=== PATIENT | male | born 1975 | race Caucasian/White ===

== ENCOUNTER 2017-10-04 16:28 | Observation (INO) ==
[2017-10-04 17:08] LABS: Clarity,Urine Clear (Clear); Color,Urine Orange (Yellow)
[2017-10-04 17:44] LABS: Calcium Oxalate Crystals,Urine Present
[2017-10-04 17:45] LABS: Basophils # 0.1 K/mcL (0.0-0.2); Basophils % 1.3 %; Eosinophils # 0.3 K/mcL (0.0-0.6); Hematocrit 38.4 % (37.5-50.1); Hemoglobin 13.1 g/dL (12.9-16.9); Immature Granulocytes % 1.1 % (0-4); Lymphocytes # 1.5 K/mcL (0.6-4.6); Lymphocytes % 20.4 %; Mean Corpuscular HGB Conc 34.1 g/dL (31.6-35.5); Mean Corpuscular Hemoglobin 36.1 pg (28.0-33.3); Mean Corpuscular Volume 105.8 fL (83.0-100.0); Mean Platelet Volume 9.8 fL (9.4-12.4); Monocytes # 0.7 K/mcL (0.0-1.3); Monocytes % 9.7 %; Neutrophils # 4.6 K/mcL (1.6-8.9); Platelet Count 63 K/mcL (140-400); Red Blood Count 3.63 M/mcL (4.19-5.50); Red Cell Distribution Width 16.9 % (11.5-14.5); Segmented Neutrophils % 63.5 %
[2017-10-04 17:45] LABS: Hyaline Casts,Urine Few per lpf (None-Few); RBC,Urine 0-3 per hpf (0-3); WBC,Urine 0-3 per hpf (0-3)
[2017-10-04 17:46] LABS: Bacteria,Urine Moderate per hpf (None-Few)
[2017-10-04 18:06] LABS: Alanine Aminotransferase 27 Units/L (7-52); Albumin 2.8 g/dL (3.5-5.7); Albumin/Globulin Ratio 0.8 (1.1-2.2); Alkaline Phosphatase 223 Units/L (34-104); Amylase 47 Units/L (29-103); Aspartate Amino Transferase 55 Units/L (13-39); BUN/Creatinine Ratio 8 (6-26); Bilirubin,Total 5.5 mg/dL (0.3-1.0); Blood Urea Nitrogen 7 mg/dL (6-20); Calcium 8.9 mg/dL (8.6-10.3); Carbon Dioxide 24 mEq/L (23-29); Chloride 109 mEq/L (98-107); Globulin 3.3 g/dL (2.4-3.5); Glucose 101 mg/dL (70-105); Lipase 50 Units/L (11-82); Osmolality,Calculated 286 (280-300); Potassium 3.9 mEq/L (3.5-5.1); Sodium 139 mEq/L (136-145); Total Protein 6.1 g/dL (6.4-8.9); eGFR For African Americans > 60 (> 60); eGFR For Non-African Americans > 60 (> 60)
--- NOTE | 2017-10-04 18:26 | Emergency Department Note ---
Disposition Clinical Impression: Hyperbilirubinemia Cirrhosis Qualifiers: Hepatic cirrhosis type: unspecified hepatic cirrhosis Ascites presence: with ascites Qualified Code(s): K74.60 - Unspecified cirrhosis of liver Disposition: Admitted As Inpatient Referrals: Taylor Sanchez CNP [Primary Care Provider] - Forms: ED Satisfaction Letter, Work/School Release Abdominal Pain HPI - General Chief Complaint: ED Abdominal Pain Stated Complaint: R flank pain Time Seen by Provider: 10/04/17 17:52 Source: patient Mode of arrival: ambulatory Limitations: no limitations Nursing Notes Reviewed: Yes Vital Signs Reviewed: Yes - History of Present Illness HPI Narrative: 42-year-old male with past medical history of cirrhosis, renal stones, and seizures, presents the emergency department with 4 day history of right side pain. He points to the pain is in the midaxillary line just inferior to the rib cage. He states that the pain is constant and all with intermittent times of sharp pain. He denies that the pain is radiating anywhere. Does not seem to get worse with food, but will be worse with movement at times. Associated symptoms include bloating, abdominal distention, and bilateral lower extremity edema. He is also reporting that his urine looks red/orange. He states that he follows with Dr. Cosme, and just had some labs drawn and they were told that his blood is thin. Dr. Cosme was planning on ordering a MRCP. He denies fevers, chills, syncope, chest pain, dyspnea, constipation, diarrhea, hematochezia, melena, dysuria, or leg pain. Pain Scale: 6 - Related Data Home Medications Medication Instructions Recorded Confirmed Omeprazole Magnesium [Prilosec Otc] 20 mg PO BID 10/04/17 10/04/17 Ursodiol [Richard Forte] 500 mg PO BID 10/04/17 10/04/17 Allergies Allergy/AdvReac Type Severity Reaction Status Date / Time phenobarbital Allergy Rash Verified 10/04/17 16:34 Cyclobenzaprine AdvReac Agitated Verified 10/04/17 16:34 [From Flexeril] All systems ED: reviewed and negative except as stated. Review of Systems: As Per HPI Abdominal Pain PMH - Past Medical History Medical history: Reports: cirrhosis, kidney stones, seizures Male Surgical History: Reports: other Psychiatric history: Reports: anxiety, depression - Social History Smoking status: Current every day smoker Alcohol use: Reports: none Drug use: Reports: marijuana Physical Exam - General Limitations: no limitations General appearance: alert, in no apparent distress - Head Head exam: atraumatic, normocephalic, normal inspection - Eye Eye exam: Present: normal appearance, EOMI, scleral icterus. Absent: conjunctival injection - ENT ENT exam: mucous membranes moist - Chest Chest inspection: Present: symmetric chest wall rise - Respiratory Respiratory exam: Present: normal lung sounds bilaterally - Cardiovascular Cardiovascular exam: Present: regular rate, normal rhythm, +S1, +S2 - Abdominal Exam Abdominal exam: Present: soft, tenderness, distention. Absent: guarding, rebound, rigidity, Jordan's sign, Rovsing's sign, tenderness at McBurney's Point Abdominal tenderness: Present: RUQ (And lateral in the midaxillary line just inferior to the rib cage.), moderate - Extremities Exam Extremities exam: Present: normal inspection, full ROM, normal capillary refill , pedal edema (+2 pitting edema bilaterally). Absent: tenderness - Back Exam Back exam: Present: CVA tenderness (R) (Mild). Absent: CVA tenderness (L), paraspinal tenderness, vertebral tenderness - Neurological Exam Neurological exam: Present: alert, oriented X3 - Skin Skin exam: Present: warm, dry, intact, normal color Course Vital Signs Temperature 98.2 F 10/04/17 16:35 Pulse Rate 92 10/04/17 16:35 Respiratory Rate 20 10/04/17 16:35 Blood Pressure 137/81 10/04/17 16:35 O2 Sat by Pulse Oximetry 97 10/04/17 16:35 Temperature 98.2 F 10/04/17 16:35 Pulse Rate 85 10/04/17 19:27 Respiratory Rate 16 10/04/17 19:27 Blood Pressure 118/68 10/04/17 19:27 O2 Sat by Pulse Oximetry 98 10/04/17 19:27 Oxygen Delivery Oxygen Delivery Room Air Abdominal Pain - MDM Narrative Medical decision making narrative: CT shows no acute findings in the abdomen or pelvis. Cirrhotic liver with no obvious focal lesion. Sequelae of portal hypertension, including dilation of the main portal vein, extensive venous collaterals, moderate ascites, and moderate splenomegaly. Initially, there is likely portal enteropathy and colopathy. Mild anasarca. CBC unremarkable. INR 1.4. Chemistry panel shows total bilirubin of 5.5, this is higher than it has been in the past for him. UA unable to be evaluated due to high bilirubin. Hepatic enzymes are consistent with previous evaluations. Discussed the case with Gastroenterology and they recommend overnight observation and to plan for MRCP in the morning for further evaluation of his hyperbilirubinemia. They have concern for primary sclerosing cholangitis. The patient is in agreement with this plan. Discussed the case with Dr. Camargo who accepts the patient for admission. - Lab Data Lab results reviewed: Yes I reviewed the patient's lab results. Result diagrams: 10/04/17 17:05 10/04/17 17:05 Lab Results 10/04/17 10/04/17 10/04/17 Range/Units 16:31 17:05 17:05 WBC 7.2 (4.3-11.1) K/mcL RBC 3.63 L (4.19-5.50) M/mcL Hgb 13.1 (12.9-16.9) g/dL Hct 38.4 (37.5-50.1) % MCV 105.8 H (83.0-100.0) fL MCH 36.1 H (28.0-33.3) pg MCHC 34.1 (31.6-35.5) g/dL RDW 16.9 H (11.5-14.5) % Plt Count 63 L (140-400) K/mcL MPV 9.8 (9.4-12.4) fL Immature Gran % 1.1 (0-4) % Seg Neutrophils % 63.5 % Lymphocytes % 20.4 % Monocytes % 9.7 % Eosinophils % 4.0 % Basophils % 1.3 % Neutrophils # 4.6 (1.6-8.9) K/mcL Lymphocytes # 1.5 (0.6-4.6) K/mcL Monocytes # 0.7 (0.0-1.3) K/mcL Eosinophils # 0.3 (0.0-0.6) K/mcL Basophils # 0.1 (0.0-0.2) K/mcL PT (9.4-12.1) Seconds INR APTT (26.0-36.0) Seconds Sodium 139 (136-145) mEq/L Potassium 3.9 (3.5-5.1) mEq/L Chloride 109 H (98-107) mEq/L Carbon Dioxide 24 (23-29) mEq/L BUN 7 (6-20) mg/dL Creatinine 0.86 (0.70-1.30) mg/dL Est GFR ( Amer) > 60 (> 60) Est GFR (Non-Af Amer) > 60 (> 60) BUN/Creatinine Ratio 8 (6-26) Glucose 101 (70-105) mg/dL Calculated Osmolality 286 (280-300) Calcium 8.9 (8.6-10.3) mg/dL Total Bilirubin 5.5 H (0.3-1.0) mg/dL AST 55 H (13-39) Units/L ALT 27 (7-52) Units/L Alkaline Phosphatase 223 H (34-104) Units/L Serum Total Protein 6.1 L (6.4-8.9) g/dL Albumin 2.8 L (3.5-5.7) g/dL Globulin 3.3 (2.4-3.5) g/dL Albumin/Globulin Ratio 0.8 L (1.1-2.2) Amylase 47 (29-103) Units/L Lipase 50 (11-82) Units/L Ur Specimen Adequacy See below A Urine Color [place] A (Yellow) Urine Clarity Clear (Clear) Urine pH TNP Ur Specific [place] TNP Urine Protein TNP Urine Glucose (UA) TNP Urine Ketones TNP Urine Blood TNP Urine Nitrite TNP Urine Bilirubin TNP Urine Urobilinogen TNP Ur Leukocyte Esterase TNP Urine Microscopic RBC 0-3 (0-3) per hpf Urine Microscopic WBC 0-3 (0-3) per hpf Calcium Oxalate Crystal Present Urine Bacteria Moderate H (None-Few) per hpf Hyaline Casts Few (None-Few) per lpf Ur Culture Indicated? NO (NO) 10/04/17 Range/Units 17:05 WBC (4.3-11.1) K/mcL RBC (4.19-5.50) M/mcL Hgb (12.9-16.9) g/dL Hct (37.5-50.1) % MCV (83.0-100.0) fL MCH (28.0-33.3) pg MCHC (31.6-35.5) g/dL RDW (11.5-14.5) % Plt Count (140-400) K/mcL MPV (9.4-12.4) fL Immature Gran % (0-4) % Seg Neutrophils % % Lymphocytes % % Monocytes % % Eosinophils % % Basophils % % Neutrophils # (1.6-8.9) K/mcL Lymphocytes # (0.6-4.6) K/mcL Monocytes # (0.0-1.3) K/mcL Eosinophils # (0.0-0.6) K/mcL Basophils # (0.0-0.2) K/mcL PT 15.3 H (9.4-12.1) Seconds INR 1.4 APTT 36.2 H (26.0-36.0) Seconds Sodium (136-145) mEq/L Potassium (3.5-5.1) mEq/L Chloride (98-107) mEq/L Carbon Dioxide (23-29) mEq/L BUN (6-20) mg/dL Creatinine (0.70-1.30) mg/dL Est GFR ( Amer) (> 60) Est GFR (Non-Af Amer) (> 60) BUN/Creatinine Ratio (6-26) Glucose (70-105) mg/dL Calculated Osmolality (280-300) Calcium (8.6-10.3) mg/dL Total Bilirubin (0.3-1.0) mg/dL AST (13-39) Units/L ALT (7-52) Units/L Alkaline Phosphatase (34-104) Units/L Serum Total Protein (6.4-8.9) g/dL Albumin (3.5-5.7) g/dL Globulin (2.4-3.5) g/dL Albumin/Globulin Ratio (1.1-2.2) Amylase (29-103) Units/L Lipase (11-82) Units/L Ur Specimen Adequacy Urine Color (Yellow) Urine Clarity (Clear) Urine pH Ur Specific [place] Urine Protein Urine Glucose (UA) Urine Ketones Urine Blood Urine Nitrite Urine Bilirubin Urine Urobilinogen Ur Leukocyte Esterase Urine Microscopic RBC (0-3) per hpf Urine Microscopic WBC (0-3) per hpf Calcium Oxalate Crystal Urine Bacteria (None-Few) per hpf Hyaline Casts (None-Few) per lpf Ur Culture Indicated? (NO) - Radiology Data Radiology results reviewed: Yes I reviewed the patient's radiology results. No acute findings in the abdomen or pelvis. Cirrhotic liver with no obvious focal lesion. Sequelae of portal hypertension, including dilation of the main portal vein, extensive venous collaterals, moderate ascites, and moderate splenomegaly. Initially, there is likely portal enteropathy and colopathy. Mild anasarca.
[2017-10-04 18:47] LABS: INR 1.4; Prothrombin Time 15.3 Seconds (9.4-12.1)
[2017-10-04 18:50] LABS: Activated Partial Thrombo Time 36.2 Seconds (26.0-36.0)
[2017-10-04] MEDS ORDERED: *HR* Nalbuphine 20 MG/ML AMPUL IVP ONE (19:46)
--- NOTE | 2017-10-04 19:55 | Emergency Department Note ---
START Narrative - START START: I examined this patient and my medical decision-making was reviewed with the Resident Physician. I agree with the documented findings, disposition and treatment plan as described except to the extent set forth below. This was a 42-year-old male presented to the ER with jaundice a right upper quadrant and right flank pain. Most the pain seemed to be in the right upper quadrant. He does have history of cirrhosis. He has obvious ascites on exam as well as jaundice. CT shows extensive ascites of the abdomen. Spoke with GI who would like the patient admitted to be admitted for a MRCP tomorrow. They are uncertain if he has primary sclerosing cholangitis or some other disease process. His labs are stable other than his elevated bilirubin. This affected his urinalysis result.
[2017-10-04] MEDS ORDERED: Naloxone 0.4 MG/ML INJ IVP PRN (23:27)
[2017-10-04] MEDS ORDERED: 0.9 % Sodium Chloride 1,000 ML IVC SCH (23:30)
--- NOTE | 2017-10-04 23:50 | Internal Med History&Physical ---
Date of Encounter: 10/04/17 Time of Encounter: 23:00 Assessment and Plan (1) Cirrhosis Current visit: Yes Status: Acute Etiology is undetermined. Continue follow-up with GI as outpatient Qualifiers: Hepatic cirrhosis type: unspecified hepatic cirrhosis Ascites presence: with ascites Qualified Code(s): K74.60 - Unspecified cirrhosis of liver (2) Hyperbilirubinemia Current visit: Yes Status: Acute Patient has a chronic high bilirubin. Will consult GI. Plan for MRCP tomorrow. (3) Abdominal pain Current visit: Yes Status: Acute Patient has sharp pain on the specifics point on the abdominal chest wall. No fever. Very less likely SBP. CT abdominal unremarkable. Will give pain medication. Nothing by mouth at this point with IV fluid. GI consult in AM Qualifiers: Abdominal location: right upper quadrant Qualified Code(s): R10.11 - Right upper quadrant pain (4) DVT prophylaxis Current visit: Yes Status: Acute Patient is young and ambulating well. Low risk for DVT. No anticoagulation as pt also has thrombocytopenia Internal Medicine - H&P: HPI Chief complaint: Abd pain Admitted From: Home Plans for Post Hospital Care: Home History of present illness: Mr. Wu is a 42 year male with history of cirrhosis from unclear reason, chronic back pain, WPW syndrome S/P ablation, presented to ER for right-sided abdominal/chest pain since Wednesday. The pain is located on the right side border of chest and abdomen, with specific tender point. Sharp. Patient said it is intermittent and worsening on eating, coughing, and sneezing. Patient denies any injury. Patient has chronic jaundice, which seems increased today. Patient denies fever, nausea, vomiting, diarrhea. CT abdomen has been done, results are unremarkable. ER called GI consult Dr. Cosme. Patient was admitted for observation and plan for MRCP tomorrow. Past Med Surg Social Fam HX - Past Medical History Medical history: cirrhosis, kidney stones, seizures Psychiatric history: anxiety, depression - Past Surgical History Surgical History: other - Social History Smoking Status: Current every day smoker Packs per day: 0.56 Smokeless Tobacco Status: No Alcohol use: none Drug use: marijuana - Family History Mother Adopted: [place]: DESMOND Age: 68 Family Member Ethnicity: Non- Living Status: Still Living Hx Family Cardiac Disorders: No Hx Family Respiratory Disorders: Yes (COPD) Hx Family Cancer: No Hx Family GI Disorders: No Hx Family Genitourinary Disorders: No Hx Family Endocrine Disorder: No Hx Family Musculoskeletal Disorders: No Hx Family Neuromuscular Disorders: No Hx Family Neurologic Disorders: No Hx Family HEENT Disorders: No Hx Family Autoimmune Disorders: Yes (RA) Hx Family Reproductive Disorders: No Hx Family Psychosocial Disorders: No Hx Family Medical Disorders: No Internal Medicine - H&P: Meds Omeprazole Magnesium [Prilosec Otc] 20 mg PO BID 10/04/17 [History] Ursodiol [Richard Forte] 500 mg PO BID 10/04/17 [History] 3 Allergy/AdvReac Type Severity Reaction Status Date / Time phenobarbital Allergy Rash Verified 10/04/17 16:34 Cyclobenzaprine AdvReac Agitated Verified 10/04/17 16:34 [From Flexeril] All Systems PM: A 10-system review of systems was performed and is negative for pertinent findings except as documented above in the HPI. - Constitutional Vitals: Temp Pulse Resp BP Pulse Ox 97.8 F 77 16 142/71 96 10/04/17 21:30 10/04/17 21:30 10/04/17 21:30 10/04/17 21:30 10/04/17 21:30 General appearance: Present: A&O X 3, no acute distress, answers questions appropriately - Head Head exam: Present: atraumatic, normocephalic - Eye Eye exam: Present: PERRL, scleral icterus, conjuntiva pink, sclera anicteric Pupils: Present: PERRL - Neck Neck exam general surgery: Present: supple, trachea midline. Absent: lymphadenopathy - Respiratory Respiratory exam: Present: CTAB. Absent: accessory muscle use, rales, rhonchi, wheezes - Cardiovascular Cardiovascular exam: Present: RRR, +S1, +S2. Absent: diastolic murmur, gallop, rubs, systolic murmur - GI/Abdominal GI/Abdominal exam: Present: normal bowel sounds, soft, tenderness, no peritoneal signs. Absent: distended Additional comments: Tenderness on the midaxillary line cross costal margin. Morphy's sign negative - Extremities Exam Extremities exam: Present: warm, radial pulses palpable and symmetrical. Absent : calf tenderness, cyanotic, pedal edema - Neurological Exam Neurological exam: Present: CN II-XII intact, oriented X3, no focal deficits. Absent: pronater drift, facial droop, speech deficit - Skin Skin exam: Present: dry, intact Internal Med - H&P Results - Labs CBC & Chem 7: 10/04/17 17:05 10/04/17 17:05
[2017-10-04] MEDS: Ketorolac 30 MG/ML VIAL IVP PRN (23:57)
[2017-10-05 05:55] LABS: Basophils # 0.1 K/mcL (0.0-0.2); Basophils % 1.2 %; Eosinophils # 0.4 K/mcL (0.0-0.6); Eosinophils % 8.6 %; Hematocrit 30.1 % (37.5-50.1); Lymphocytes # 1.2 K/mcL (0.6-4.6); Lymphocytes % 29.6 %; Mean Corpuscular HGB Conc 34.2 g/dL (31.6-35.5); Mean Corpuscular Hemoglobin 35.8 pg (28.0-33.3); Mean Corpuscular Volume 104.5 fL (83.0-100.0); Monocytes # 0.5 K/mcL (0.0-1.3); Monocytes % 12.1 %; Red Blood Count 2.88 M/mcL (4.19-5.50); Red Cell Distribution Width 17.1 % (11.5-14.5); Segmented Neutrophils % 47.5 %
[2017-10-05 05:57] LABS: Hemoglobin 10.3 g/dL (12.9-16.9); Platelet Count 46 K/mcL (140-400)
[2017-10-05 06:20] LABS: Alanine Aminotransferase 19 Units/L (7-52); Albumin/Globulin Ratio 0.8 (1.1-2.2); Alkaline Phosphatase 158 Units/L (34-104); Aspartate Amino Transferase 39 Units/L (13-39); BUN/Creatinine Ratio 9 (6-26); Bilirubin,Indirect 1.7 mg/dL (0.0-1.2); Bilirubin,Total 3.7 mg/dL (0.3-1.0); Blood Urea Nitrogen 8 mg/dL (6-20); Calcium 7.8 mg/dL (8.6-10.3); Carbon Dioxide 23 mEq/L (23-29); Chloride 112 mEq/L (98-107); Globulin 2.5 g/dL (2.4-3.5); Glucose 69 mg/dL (70-105); Magnesium 1.6 mg/dL (1.6-2.6); Osmolality,Calculated 283 (280-300); Potassium 3.3 mEq/L (3.5-5.1); Sodium 138 mEq/L (136-145); Total Protein 4.5 g/dL (6.4-8.9); eGFR For African Americans > 60 (> 60); eGFR For Non-African Americans > 60 (> 60)
--- NOTE | 2017-10-05 07:54 | Internal Med Progress Note ---
Date of Encounter: 10/05/17 Time of Encounter: 07:52 - Assessment and plan (1) Abdominal pain Current Visit: Yes Status: Acute Assessment and plan: This is either intercostal strain, or a abdominal wall muscle sprain most likely. Does not appear to be GI related. Qualifiers: Abdominal location: right upper quadrant Qualified Code(s): R10.11 - Right upper quadrant pain (2) Protein calorie malnutrition Current Visit: Yes Status: Acute Assessment and plan: Due to liver disease, he would benefit from protein supplementation 2-3 times per day upon discharge. Qualifiers: Qualified Code(s): E43 - Unspecified severe protein-calorie malnutrition (3) Cirrhosis Current Visit: Yes Status: Chronic Assessment and plan: Bilirubin is coming down nicely since admission, there does not appear to be over advancement of his cirrhosis at this time, there is some mild ascites, there is no signs of bacterial peritonitis. With associated thrombocytopenia Qualifiers: Hepatic cirrhosis type: unspecified hepatic cirrhosis Ascites presence: with ascites Qualified Code(s): K74.60 - Unspecified cirrhosis of liver (4) Hyperbilirubinemia Current Visit: Yes Status: Chronic Assessment and plan: Improving. (5) Hypokalemia Current Visit: Yes Status: Acute Assessment and plan: We will supplement this upon discharge. - Time Spent With Patient 25 - 35 minutes - Subjective Interval history: He is still having some right upper quadrant discomfort, this sounds more structural than anything else. He is having no nausea no vomiting, his pain does not appear to be a meal associated, he currently is somewhat hungry. Currently nothing by mouth for MRCP later today. Still awaiting gastroenterology consultation. My hope is to discharge later today pending that result. - Constitutional Vitals: Temp Pulse Resp BP Pulse Ox 97.7 F 80 16 102/54 95 10/05/17 03:36 10/05/17 03:36 10/05/17 03:36 10/05/17 03:36 10/05/17 03:36 General appearance: Present: A&O X 3, no acute distress, answers questions appropriately - Eye Eye exam: Present: EOMI, scleral icterus - Neck Neck exam general surgery: Present: supple, trachea midline - Respiratory Additional comments: Decreased breath sounds in the right base compared to the left, mild decreased airflow in all mueller, no tachypnea. The ribs on the right side in the lower anterior area are not tender to palpation. - GI/Abdominal GI/Abdominal exam: Present: normal bowel sounds, soft, no peritoneal signs. Absent: rebound, rigid Additional comments: No fluid wave noted. - Extremities Exam Extremities exam: Present: warm. Absent: pedal edema Internal Medicine: Result - Labs CBC & Chem 7: 10/05/17 05:24 10/05/17 05:24 Labs: Short CBC 10/05/17 Range/Units 05:24 WBC 4.1 L (4.3-11.1) K/mcL Hgb 10.3 L D (12.9-16.9) g/dL Hct 30.1 L (37.5-50.1) % Plt Count 46 L (140-400) K/mcL Neutrophils # 2.0 (1.6-8.9) K/mcL BMP 10/05/17 05:24 Sodium 138 Potassium 3.3 L Chloride 112 H Carbon Dioxide 23 BUN 8 Creatinine 0.90 Glucose 69 L Calcium 7.8 L Liver Function 10/05/17 Range/Units 05:24 Total Bilirubin 3.7 H (0.3-1.0) mg/dL Direct Bilirubin 2.0 H (0.0-0.2) mg/dL AST 39 (13-39) Units/L ALT 19 (7-52) Units/L Alkaline Phosphatase 158 H (34-104) Units/L Albumin 2.0 L (3.5-5.7) g/dL - ABG Interpretation ABG results: PT/INR, D-dimer PT 15.3 Seconds (9.4-12.1) H 10/04/17 17:05 Consult Discharge Plan - Plan Referrals: Taylor Sanchez, FAMILY [employer] SPECIALIST [Primary Care Provider] -
[2017-10-05] MEDS: Ketorolac 30 MG/ML VIAL IVP PRN (09:26)
[2017-10-05 15:44] VITALS: BP 122/72
--- NOTE | 2017-10-05 15:57 | Gastroenterology Consult Note ---
<RiversJun herring Oren - Last Filed: 10/05/17 15:55> Date of Encounter: 10/05/17 Time of Encounter: 12:05 - Assessment and plan (1) Ascites Status: Acute Assessment and plan: Secondary to cirrhosis. Plan for paracentesis today. Send fluid for cell count, albumin, and total protein. Infuse Albumin 25%, 8 gm/L if greater than 5 liters removed. Start Cipro to cover SBP prophylactically. Qualifiers: Ascites type: other type Qualified Code(s): R18.8 - Other ascites (2) Primary biliary cholangitis Status: Acute Assessment and plan: AMA 26.9, alk phos 223 on admission and 158 today. Pt has been unable to afford Ursodiol. (3) Cirrhosis Status: Chronic Assessment and plan: MELD-Na 17, Child-Prieto class B, DF 27.6. Check AFP. RUQ US 09/29 no lesions noted. Qualifiers: Hepatic cirrhosis type: unspecified hepatic cirrhosis Ascites presence: with ascites Qualified Code(s): K74.60 - Unspecified cirrhosis of liver - Time Spent With Patient Total time spent is greater than 50% in coordination of care (as documented) at patient's floor/unit and/or counseling patient: GI History of Present Illness - Data of Consult Patient: known to practice within the last 3 years Consult date: 10/05/17 Requesting Physician: aRmona Casillas CNP - Consult Narrative Reason for consult: Ascites History of present illness: Mr. Wu is a 42 year old male with PMHx of cirrhosis, kidney stones, WPW syndrome s/p ablation who presented to the ED with right sided abdominal pain that started on Wednesday. The pain is located on the right side border of chest and abdomen, with specific tender point. Patient said it is intermittent and worsening on eating, coughing, and sneezing. He denies fever, chills, nausea, vomiting, diarrhea, constipation, melena, or hematochezia. Total bili 5.5 on admission and this AM TB 3.7. Procedures: Colonoscopy 01/21/2016 Dr. Cosme: Normal EGD 01/21/2016 Dr. Cosme: Portal hypertensive gastropathy. NSAIDs: None Anticoagulation: None Past Med Surg Social Fam HX - Past Medical History Medical history: cirrhosis, kidney stones, seizures Psychiatric history: anxiety, depression - Past Surgical History Surgical History: other - Social History Smoking Status: Current every day smoker Packs per day: 0.56 Smokeless Tobacco Status: No Alcohol use: none Drug use: marijuana - Family History Mother Adopted: Regan: DESMOND Age: 68 Family Member Ethnicity: Non- Living Status: Still Living Hx Family Cardiac Disorders: No Hx Family Respiratory Disorders: Yes (COPD) Hx Family Cancer: No Hx Family GI Disorders: No Hx Family Genitourinary Disorders: No Hx Family Endocrine Disorder: No Hx Family Musculoskeletal Disorders: No Hx Family Neuromuscular Disorders: No Hx Family Neurologic Disorders: No Hx Family HEENT Disorders: No Hx Family Autoimmune Disorders: Yes (RA) Hx Family Reproductive Disorders: No Hx Family Psychosocial Disorders: No Hx Family Medical Disorders: No - Gastrointestinal Gastrointestinal: Present: as per HPI - Constitutional Constitutional: as per HPI - EENT Eyes: as per HPI Ears: Present: as per HPI Nose, mouth and throat: Present: as per HPI - Cardiovascular Cardiovascular ROS: Present: as per HPI - Respiratory Respiratory IM: Present: as per HPI - Genitourinary Genitourinary: Absent: change in color, Urinary frequency - Neurological ROS Neurological GI: Present: as per HPI - Hematologic/Lymphatic Hematologic/Lymphatic pediatric: Present: as per HPI - Musculoskeletal Musculoskeletal ROS GI: Present: as per HPI - Integumentary Integumentary GI: Present: as per HPI - Psychiatric ROS Psychiatric GI: Present: as per HPI - Endocrine Endocrine IM: Present: as per HPI - Constitutional Vitals: Temp Pulse Resp BP Pulse Ox 97.9 F 79 16 122/72 96 10/05/17 15:42 10/05/17 15:42 10/05/17 15:42 10/05/17 15:42 10/05/17 15:42 General appearance: Present: cooperative, A&O X 3, no acute distress, answers questions appropriately - Head Head exam: Present: atraumatic, normocephalic - Eye Eye exam: Present: normal appearance, sclera anicteric - ENT ENT exam: Present: mucous membranes dry - Neck Neck exam general surgery: Present: normal inspection, trachea midline - Respiratory Respiratory exam: Present: CTAB. Absent: rales, rhonchi - Cardiovascular Cardiovascular exam: Present: RRR, +S1, +S2 - GI/Abdominal GI/Abdominal exam: Present: soft, no peritoneal signs. Absent: distended, firm , guarding, tenderness - Expanded GI/Abdominal Exam GI/Abdominal exam expanded: Present: ascites - Rectal Rectal exam: Present: deferred - Extremities Exam Extremities exam: Present: warm - Neurological Exam Neurological exam: Present: no focal deficits - Psychiatric Psychiatric exam: Present: normal affect, normal mood - Skin Skin exam: Present: dry, intact, normal color, warm Results - Labs CBC & Chem 7: 10/05/17 05:24 10/05/17 05:24 Labs: Last Result Calcium 7.8 mg/dL (8.6-10.3) L 10/05/17 05:24 Entire Visit Hgb 10.3 g/dL (12.9-16.9) L D 10/05/17 05:24 Hct 30.1 % (37.5-50.1) L 10/05/17 05:24 PT 15.3 Seconds (9.4-12.1) H 10/04/17 17:05 Total Bilirubin 3.7 mg/dL (0.3-1.0) H 10/05/17 05:24 AST 39 Units/L (13-39) 10/05/17 05:24 ALT 19 Units/L (7-52) 10/05/17 05:24 Amylase 47 Units/L (29-103) 10/04/17 17:05 Lipase 50 Units/L (11-82) 10/04/17 17:05 - ABG ABG results: PT/INR, D-dimer PT 15.3 Seconds (9.4-12.1) H 10/04/17 17:05 - Impressions Impressions Foreign Body Localization X-Ray 10/05/17 00:00 IMPRESSION: No evidence of metallic foreign body within the orbits. D/ / Jones Earl MD / Jones Earl MD Interpreting Provider: Jones Earl MD Abdomen MRI 10/05/17 07:42 IMPRESSION: 1. Suboptimal evaluation due to artifact. 2. Cirrhotic liver with evidence of portal hypertension. 3. Suboptimal evaluation of the pancreas and adrenal glands. 4. Bilateral renal cysts. 5. Moderate to large amount of ascites. D/ / 10/05/2017 11:56:38 Halima Arriaga MD / damian Interpreting Provider: Halima Arriaga MD Consult Discharge Plan - Plan Referrals: Taylor Sanchez CNP [Primary Care Provider] - (The office will call with an appointment.) Prescriptions: Furosemide [Lasix] 20 mg PO DAILY #30 tablet Spironolactone [Aldactone] 25 mg PO BID #60 tablet <Heath Baca - Last Filed: 10/10/17 15:17> Date of Encounter: 10/05/17 - Time Spent With Patient Total time spent is greater than 50% in coordination of care (as documented) at patient's floor/unit and/or counseling patient: GI History of Present Illness - Data of Consult Requesting Physician: Ramona Casillas CNP - Consult Narrative History of present illness: Mr. Wu is a 42 year old male - Constitutional Vitals: Temp Pulse Resp BP Pulse Ox 97.9 F 79 16 122/72 96 10/05/17 15:42 10/05/17 15:42 10/05/17 15:42 10/05/17 15:42 10/05/17 15:42 Results - Labs CBC & Chem 7: 10/05/17 05:24 10/05/17 05:24 Labs: Last Result Calcium 7.8 mg/dL (8.6-10.3) L 10/05/17 05:24 Peritoneal Appearance CLEAR (Clear) 10/05/17 15:00 Peritoneal Volume 60.0 mL 10/05/17 15:00 Peritoneal RBC < 0.002 M/mcL (0.000-0.002) 10/05/17 15:00 Periton Tot Nuc Cells 96 TNC/mcL (0-300) 10/05/17 15:00 Periton Band Neuts Test Not Performed 10/05/17 15:00 Periton Lymphocytes % 18.0 % 10/05/17 15:00 Periton Monocytes % 21.0 % 10/05/17 15:00 Periton Other Cells % 47.0 % 10/05/17 15:00 Peritoneal Tot Protein < 3.0 g/dL (No Ref Range) 10/05/17 15:00 Peritoneal Albumin < 1.5 g/dL (No Ref Range) 10/05/17 15:00 Entire Visit Hgb 10.3 g/dL (12.9-16.9) L D 10/05/17 05:24 Hct 30.1 % (37.5-50.1) L 10/05/17 05:24 PT 15.3 Seconds (9.4-12.1) H 10/04/17 17:05 Total Bilirubin 3.7 mg/dL (0.3-1.0) H 10/05/17 05:24 AST 39 Units/L (13-39) 10/05/17 05:24 ALT 19 Units/L (7-52) 10/05/17 05:24 Amylase 47 Units/L (29-103) 10/04/17 17:05 Lipase 50 Units/L (11-82) 10/04/17 17:05 - ABG ABG results: PT/INR, D-dimer PT 15.3 Seconds (9.4-12.1) H 10/04/17 17:05 - Attending Attestation This was a pleasant 42-year-old male with cirrhosis, ascites and comes in with right upper quadrant and chest pain. Does have A History of Intermittent Chills or the Possibility of Subacute Subacute Bacterial Peritonitis Is Definitely There in the Differential Would Put the Patient on Ciprofloxacin and Obtain a Paracentesis and Send the Fluid off for Gram Stain and the Cell Count and Culture and Blood Culture Bottles Make Further Recommendations As We Go along Patient Is a Child's B Cirrhotic and the Rest of the Workup Can Be Done As an Outpatient so Much for This Consultation I have personally performed a face to face evaluation on this patient. I have reviewed and agree with the care plan. History and Exam by me shows:
[2017-10-05 16:29] LABS: RBC,Peritoneal Fluid < 0.002 M/mcL
[2017-10-05 16:32] LABS: Appearance of Peritoneal Fl CLEAR (Clear)
--- NOTE | 2017-10-05 16:47 | Discharge Summary ---
- NOTES TO OUTPATIENT PROVIDER Notes to Outpatient Provider: Have started Lasix and Aldactone; will need chem 7 one week after DC. May have to titrate both meds over time if BP will allow. Orders not resulted at time of discharge: Pending orders 10/05/17 12:49 IR paracentesis ultrasound [IR] Routine 10/05/17 12:52 US liver [US] Routine 10/05/17 13:13 AFP Tumor Marker Non- Routine 10/05/17 15:00 Albumin,Peritoneal Fluid [BF] Routine Cell Cnt w Dif, Peritoneal Fl [BF] Routine Total Protein,Peritoneal Fluid [BF] Routine 10/05/17 16:38 Cell Count w Diff, Pleural Fld [BF] Stat Date of Encounter: 10/08/17 Time of Encounter: 16:44 - Discharge Diagnosis (1) Abdominal pain Priority: Primary Status: Acute Comments: Upon discharge, he admits his pain was a good deal improved, reason for that is unknown at this time. Qualifiers: Abdominal location: right upper quadrant Qualified Code(s): R10.11 - Right upper quadrant pain (2) Protein calorie malnutrition Priority: Secondary Status: Acute Comments: Would be helpful that upon discharge, he starts at least ensure 2-3 times per day. Qualifiers: Qualified Code(s): E46 - Unspecified protein-calorie malnutrition (3) Hypokalemia Priority: Secondary Status: Acute (4) Primary biliary cholangitis Priority: Secondary Status: Chronic Hospital course: Mr. Wu is a 42 year old male who came into the hospital last evening with right upper quadrant pain, from a historical standpoint, this appears to be somewhat structural, he really had no GI symptoms. Labs in the ER disclosed elevated bilirubin. Today, on day of discharge, MRCP disclosed no new abnormalities. He did have elective paracentesis today, this is his first, and most likely will be an issue going forward. He showed no signs of spontaneous pectoral peritonitis, and will not give him antibiotics upon discharge. I do have a white count on the fluid pending normal follow-up on that. He is stable for discharge at this time. Again there appears to be nothing other than structural causes as a reason for his discomfort. Less likely would have been a common duct stone which may have passed at this time. Discharge discussed with: patient Time spent discussing smoking cessation with patient: more than 10 minutes - Time Spent with Patient Total time spent providing and/or coordinating discharge services: Less than 30 minutes - Discharge Medications Prescriptions: Furosemide [Lasix] 20 mg PO DAILY #30 tablet Spironolactone [Aldactone] 25 mg PO BID #60 tablet Home Medications: Omeprazole Magnesium [Prilosec Otc] 20 mg PO BID 10/04/17 [History] Ursodiol [Richard Forte] 500 mg PO BID 10/04/17 [History] Furosemide [Lasix] 20 mg PO DAILY #30 tablet 10/05/17 [Rx] Spironolactone [Aldactone] 25 mg PO BID #60 tablet 10/05/17 [Rx] Allergies/Adverse Reactions: 3 Allergy/AdvReac Type Severity Reaction Status Date / Time phenobarbital Allergy Rash Verified 10/04/17 16:34 Cyclobenzaprine AdvReac Agitated Verified 10/04/17 16:34 [From Flexeril] Date of admission: 10/04/17 20:53 Primary care physician: Taylor Sanchez CNP - Constitutional Vitals: Temp Pulse Resp BP Pulse Ox 97.9 F 79 16 122/72 96 10/05/17 15:42 10/05/17 15:42 10/05/17 15:42 10/05/17 15:42 10/05/17 15:42 General appearance: Present: A&O X 3, no acute distress, answers questions appropriately - Patient Status Disposition: Home, Self-Care Condition: Fair Functional capacity at discharge: independent ambulation - Discharge Instructions Follow Up With: Taylor Sanchez CNP [Primary Care Provider] - (The office will call with an appointment.) - Diet and Activity Activity: increase activity as tolerated
[2017-10-05 17:40] LABS: Total Protein,Peritoneal Fluid < 3.0 g/dL (No Ref Range)
== END 2017-10-05 17:40 | disposition home or self-care (01) ==
LOC: 3BNU 16:28 → EMEROO 16:28 → 3BNU 21:19
PROVIDERS: ADMIT Registered Nurse; ATTEND Registered Nurse